=== PATIENT | female | born 1995 | race Caucasian/White ===

== ENCOUNTER 2019-04-19 04:03 | Emergency (ER) | payer OTHER ==
[2019-04-19 04:51] LABS: URINE BLOOD (Dip) POC 2+ (NEGATIVE); URINE GLUCOSE (Dip) POC Negative (NEGATIVE); URINE KETONES (Dip) POC Negative (NEGATIVE); URINE LEUKOCYTE EST (Dip) POC Negative (NEGATIVE); URINE NITRITE (Dip) POC Negative (NEGATIVE); URINE TOTAL PROTEIN POC 1+ (NEGATIVE)
[2019-04-19 04:51] LABS: URINE PH (Dip) POC 5.5 (5.0-8.5)
[2019-04-19] MEDS: DIPHENHYDRAMINE 25 MG CAP PO (05:14)
== END 2019-04-19 05:22 | disposition home or self-care (01) ==
LOC: FTE 05:22
DX: R06.02 Shortness of breath (principal); F41.9 Anxiety disorder, unspecified
CPT/HCPCS: 81003; 81025; 99282